=== PATIENT | female | born 1995 ===

== ENCOUNTER 2018-02-25 00:18 | Emergency (ER) | payer SELFPAY ==
[2018-02-25 00:18] VITALS: BMI 27.0
[2018-02-25 00:42] VITALS: TEMP 98
[2018-02-25] MEDS ORDERED: Sodium Chloride 0.9% 1,000 ML IV STA (01:02)
[2018-02-25 01:42] LABS: BASO % 0.3 % (0.0-2.0); EOS # 0.3 K/uL (0.0-0.7); EOS % 2.1 % (0.0-4.0); HEMOGLOBIN 12.8 g/dL (12.0-16.0); LYMPH # 3.5 K/uL (1.0-4.3); LYMPH % 29.1 % (20.0-40.0); MEAN CELL VOLUME 87.8 fl (81.0-99.0); MEAN CORPUSCULAR HEMOGLOBIN 29.4 pg (27.0-31.0); MEAN CORPUSCULAR HGB CONC 33.5 g/dL (33.0-37.0); MEAN PLATELET VOLUME 8.3 fl (7.2-11.7); MONO # 0.9 K/uL (0.0-0.8); MONO % 7.4 % (0.0-10.0); NEUT # 7.3 K/uL (1.8-7.0); NEUT % 61.1 % (50.0-75.0); RBC 4.34 Mil/uL (3.80-5.20); RED CELL DISTRIBUTION WIDTH 12.6 % (11.5-14.5)
[2018-02-25 01:44] LABS: ALB/GLOB RATIO 1.2 (1.0-2.1); ALBUMIN 4.1 g/dL (3.5-5.0); ALT/SGPT 40 U/L (9-52); AST/SGOT 36 U/L (14-36); BLOOD UREA NITROGEN 11 mg/dl (7-17); CALCIUM 9.1 mg/dL (8.4-10.2); GFR AFRICAN-AMERICAN > 60; GFR NON-AFRICAN AMERICAN > 60; LIPASE 103 U/L (23-300)
[2018-02-25] MEDS ORDERED: Alum-Mag Hydrox-Simethicone Susp (30 mL) PO STA (01:57)
[2018-02-25] MEDS ORDERED: Atrop/Hyos/Scop/PhenoB Elixir PO STA (01:57)
[2018-02-25] MEDS ORDERED: Alum-Mag Hydrox-Simethicone Susp (30 mL) ONE (02:13)
--- NOTE | 2018-02-25 02:17 | ED PDOC ---
HPI: Abdomen Time Seen by Provider: 02/25/18 00:31 Chief Complaint (Nursing): Abdominal Pain Chief Complaint (Provider): Epigastric pain on/off for 2 weeks History Per: Patient History/Exam Limitations: no limitations Onset/Duration Of Symptoms: Days Location Of Pain/Discomfort: Epigastric Quality Of Discomfort: Sharp, Burning Associated Symptoms: denies: Fever, Chills, Nausea, Vomiting, Loss Of Appetite Exacerbating Factors: None Alleviating Factors: None Additional Complaint(s): 22 yo female with no medical problems presents with epigastric abdominal pain on /off for 2 weeks. Denies N/V. Pt states it is a few times during the day but does not think there is a relation to food. Pt states she will take motrin at home which has been helping but the pain comes back. No similar in the past. No new medications. Past Medical History Reviewed: Historical Data, Nursing Documentation, Vital Signs Vital Signs: Last Vital Signs Temp 98.0 F 02/25/18 00:39 Pulse 83 02/25/18 00:39 Resp 19 02/25/18 00:39 BP 100/69 02/25/18 00:39 Pulse Ox 99 02/25/18 02:19 - Medical History PMH: No Chronic Diseases - Surgical History Surgical History: No Surg Hx - Family History Family History: States: No Known Family Hx - Living Arrangements Living Arrangements: With Family - Social History Current smoker - smoking cessation education provided: No Alcohol: None Drugs: Denies - Home Medications Home Medications: Ambulatory Orders Medication Instructions Recorded No122/Iron/Folic Acid 1 tab PO DAILY 07/15/16 [ Multi Tablet] Ibuprofen [Motrin Tab] 600 mg PO Q6 PRN #0 tab 07/17/16 Famotidine [Pepcid] 20 mg PO BID #28 tab 02/25/18 - Allergies Allergies/Adverse Reactions: Allergies Allergy/AdvReac Type Severity Reaction Status Date / Time No Known Allergies Allergy Verified 02/25/18 00:39 Review of Systems ROS Statement: Except As Marked, All Systems Reviewed And Found Negative Constitutional: Negative for: Fever, Chills Gastrointestinal: Positive for: Abdominal Pain. Negative for: Nausea, Vomiting , Diarrhea, Melena Physical Exam - Reviewed Nursing Documentation Reviewed: Yes Vital Signs Reviewed: Yes - Physical Exam Appears: Positive for: Well, Non-toxic, No Acute Distress Head Exam: Positive for: ATRAUMATIC, NORMAL INSPECTION, NORMOCEPHALIC Skin: Positive for: Normal Color, Warm, DRY Eye Exam: Positive for: Normal appearance ENT: Positive for: Normal ENT Inspection Neck: Positive for: Normal, Painless ROM Cardiovascular/Chest: Positive for: Regular Rate, Rhythm Respiratory: Positive for: Normal Breath Sounds. Negative for: Accessory Muscle Use, Respiratory Distress Gastrointestinal/Abdominal: Positive for: Normal Exam, Bowel Sounds, Soft, Other ((-) Dubose's sign). Negative for: Tenderness, Guarding, Rebound Back: Positive for: Normal Inspection Extremity: Positive for: Normal ROM Neurologic/Psych: Positive for: Alert, Oriented - Laboratory Results Result Diagrams: 02/25/18 01:28 02/25/18 01:28 - ECG O2 Sat by Pulse Oximetry: 99 Medical Decision Making Medical Decision Making: Slight elevation of WBC. PT without pain on re-evaluation. Discussed f.u with GI. Disposition - Clinical Impression Clinical Impression: Epigastric abdominal pain - Patient ED Disposition Is Patient to be Admitted: No Counseled Patient/Family Regarding: Diagnosis, Need For Followup, Rx Given - Disposition Referrals: Jaguar Graham MD [Staff Provider] - Disposition: Routine/Home Disposition Time: 03:26 Condition: GOOD Prescriptions: Famotidine [Pepcid] 20 mg PO BID #28 tab Instructions: Gastritis Forms: [facility] (Chinese)
[2018-02-25 02:23] LABS: SQUAMOUS EPITHIAL 24 /hpf (0-5); URINE BACTERIA RARE (<OCC); URINE BILIRUBIN NEGATIVE (NEGATIVE); URINE BLOOD MODERATE (NEGATIVE); URINE CLARITY CLOUDY (Clear); URINE COLOR YELLOW (YELLOW); URINE GLUCOSE (UA) NEG (Normal); URINE LEUKOCYTE ESTERASE LARGE Leu/uL (Negative); URINE PROTEIN 30 mg/dL (NEGATIVE)
[2018-02-25 04:06] VITALS: BP 125/64; PULSE 76; RESP 14; O2SAT 98
== END 2018-02-25 04:22 | disposition home or self-care (01) ==
LOC: H.ER 00:18
DX: R10.13 Epigastric pain (principal)
CPT/HCPCS: 80053; 81003; 81025; 83690; 85025; 87086; 96360; 99283; J7040